=== PATIENT | male | born 1955 | race Caucasian/White ===

== ENCOUNTER → 2017-02-20 | Outpatient (CLI) | payer BC | LOC: OD 17:09 | PROVIDERS: ATTEND Family Medicine | DX: M79.671 Pain in right foot (principal); M79.672 Pain in left foot ==

== ENCOUNTER → 2020-09-14 | Outpatient (CLI) | payer OTHER ==
--- NOTE | 2020-09-14 11:11 | DRAGON STRESS TEST REPORT ---
Name: Juan Diego Thompson : Apr Date: OCT 01 The patient underwent treadmill exercise using the Edward protocol for the evaluation of chest pain, completing 4:59 minutes and achieving an estimated workload of 7.0 metabolic equivalents (METS). The test was terminated due to knee pain. The heart rate was 67 beats per minute at baseline and increased to 160 beats at peak exercise, which was 102% of the maximum predicted heart rate. The rest blood pressure was 146/90 mm/Hg and increased to 199/107 mm/Hg, which is a hypertensive response. The patient complained of knee pain during the procedure. The resting electrocardiogram demonstrated NSR and did not show ST-segment changes consistent with ischemia. Impression -No electrical evidence of ischemia at the achieve workload. -Hypertensive response to exertion. -Mildly decreased exercise tolerance. -No exercise-induced dysrhythmias. MTDD
== END ==
LOC: SP 07:03
PROVIDERS: ATTEND Family Medicine
DX: R07.89 Other chest pain (principal)
CPT/HCPCS: 93017